=== PATIENT | female | born 1960 | race Caucasian/White ===

== ENCOUNTER 2023-04-17 15:15 | Outpatient (RCR) | payer OTHER, SELFPAY | END 2023-05-22 15:00 | disposition home or self-care (01) | PROVIDERS: PCP Family Medicine; Visit Provider Family Medicine | DX: S03.40XA Sprain of jaw, unspecified side, initial encounter (principal); R52 Pain, unspecified; M62.40 Contracture of muscle, unspecified site; Z51.89 Encounter for other specified aftercare | CPT/HCPCS: 97032; 97110; 97140; 97161 ==

== ENCOUNTER 2023-07-09 11:15 | Outpatient (RCR) | payer OTHER, SELFPAY | END 2023-10-10 11:28 | disposition home or self-care (01) | PROVIDERS: PCP Family Medicine; Visit Provider Student in an Organized Health Care Education/Training Program | DX: M26.621 Arthralgia of right temporomandibular joint (principal); H93.8X9 Other specified disorders of ear, unspecified ear; Z51.89 Encounter for other specified aftercare | CPT/HCPCS: 97032; 97140; 97164 ==

== ENCOUNTER 2025-01-15 17:01 | Emergency (ER) | payer BC, SELFPAY ==
[2025-01-15] VITALS (26 sets, daily range): BP systolic 127–186; BP diastolic 86–118; PULSE 60–71; RESP 6–26; TEMP 36.8; O2SAT 94–99; BMI 24.7
--- OUTSIDE RECORDS SUMMARY | 2025-01-15 17:04 | XMS_ITS | Clinical Summary ---
Author Organization [facility] Address [address] [place] [id number] Care Team Providers Care Rubber Stamp Assembler Name Role Phone Linh Moses MD Primary Care Provide r Allergies Active Allergy Reactions Criticality Noted Date Comments Bee Venom Protein (Honey Bee) Hives,Edema 10/13/2016 Typhoid Vaccin,Live,Attenuated Diarrhea 12/04/2018 Oral typhoid vaccine--GI upset Medications naproxen (ALEVE) 220 mg tablet Takes rarely as needed for migraine 0 12/16/19 17 Active hydrocortisone 2.5% creamIndications:H emorrhoids, external APPLY TOPICALLY TO AFFECTED AREA(S) 2 TIMES DAILY 28 g 2 11/12/19 20 Active EPINEPHrine (EpiPen 2-Valente) 0.3 mg/0.3 mL auto-injectorIndic ations:Systemic reaction to bee sting Inject 0.3 mg (1 Pen) intramuscular one time if needed for Allergic Reaction. 1 Each 11/13/19 24 Active rizatriptan 5 mg disintegrating tabletIndications: Migraine without aura and without status migrainosus, not intractable Place 1-2 tablets on the tongue every 2 hours if needed for Migraine. Max dose: 30mg per 24 hrs. 10 Tablet 4 06/04/19 25 Active pramipexole 0.5 mg tabletIndications: Restless legs syndrome Take 0.5mg by mouth 2-3 hours before bedtime 90 Tablet 3 06/04/19 25 Active omeprazole (PRILOSEC) 20 mg Delayed-Release capsuleIndications :Chronic cough Take 1 Capsule (20 mg) by mouth once daily before a meal. Take 30 minutes prior to a meal 30 Capsule 2 11/14/19 25 Active Active Problems Problem Noted Date Diagnosed Date Sensorineural hearing loss, bilateral 02/15/2018 Microscopic colitis 12/03/2015 Migraine without aura and wi thout status migrainosus, not intractable 05/29/2015 Patellofemoral stress syndrome of right knee Vitamin D deficiency 09/14/2014 Routine adult health maintenance 04/01/2013 Overview (04/01/2013): Colonoscopy 03/2013 normal repeat in 10 years Fibroids 10/04/2010 Dysthymic disorder 10/04/2010 Encounters Date Type Department Care Team Description 11/13/2024 4:30 PM CDT Ancillary Procedure [place] [address] [place] [address] 11/13/2024 2:40 PM CDT Office Visit [facility] [address] [place] [address] Linh Moses MD Cough (Unsure if it is viral or possible acid reflux, occasionally will throw up when coughing typically after drinking red wine at dinner or spicy food occasional sore throat. Does seem better if she controls the food she is eating./Started taking omeprazole 20 mg delayed release this week.); Lab (Discuss A1c, 6.0. indicating prediabetes ) 11/13/[address] [place] [address] Linh Moses MD Refill Request (Omeprazole) 11/13/2024 Travel 11/12/2024 Nurse Triage [facility] [address] [place] [address] Linh Moses MD Cough 11/12/2024 Telephone [facility] [address] [place] [address] Linh Moses MD Appointment Request (appointment) 11/11/2024 7:20 AM CDT Ancillary Procedure [facility] [address] [place] [address] 11/10/2024 3:00 PM CDT Orders Only [facility] [address] [place] [address] Lab, [place] [facility] 11/10/2024 Travel from Last 3 Months Immunizations Immunization Administration Dates Next Due COVID-19 VACCINE SPIKEVAX (M ODERNA 50MCG/0.5ML) 12YO+ PFS 02/08/2023 COVID-19 vaccine (Moderna 100mcg/0.5mL) PF, MDV 01/15/2021 COVID-19 vaccine (Pfizer-Bio NTech 30mcg/0.3mL) 12YO+ MEENU-SUCROSE PF, MDV 06/18/2021 COVID-19 vaccine (Pfizer-Bio NTech 30mcg/0.3mL) PF, MDV 06/10/2020,05/20/2020 HepA-HepB (Twinrix) 10/18/2018 Influenza Virus, Unspecified 12/26/2023 Influenza, IIV4 02/08/2023,,11/25/2020,2017,11/21/2016,11/18/2015 Influenza, IIV4 (=>6mos) MDV 11/17/2019,12/04/19,12/04/2017 Influenza, Injectable, Mdck, Quadrivalent, W/preservative 12/27/2021,11/25/2020 Influenza,CCIIV4 PRESERV FREE 11/25/2020 Tdap 09/20/2012 Typhoid (oral) 10/18/2018 Zoster (Shingrix-RZV, recombinant) 03/30/2020, Family History Medical History Relation Name Comments Stroke Father Bear Hernandesdonny Heart Disease Maternal Grandfather Stroke Paternal Grandfather Hypertension Sister 2 Neha Vilchis Parkinsonism Sister 2 Neha Vilchis Cancer-breast No Family History Relation Name Status Comments Brother Bear Hernandesdonny Alive Daughter Génesis Kang Alive Father Bear Josephjuarez Alive Maternal Grandfather Maternal Grandmother Mother Xi Mame Alive Paternal Grandfather Paternal Grandmother Sister 1 Tayla Watt Alive Sister 2 Neha Vilchis Alive Son James Kang Alive Social History Tobacco Use Types Packs/Day Years Used Date Smoking Tobacco: Former Cigarettes 1 2 0 03/05/1980 - 03/05/1982 Smokeless Tobacco: Never Tobacco Cessation:Counseling Given: Not Answered Alcohol Use Standard Drinks/Week Comments Yes 10 (1 standard drink = 0.6 oz pu re alcohol) PHQ-2 Answer Date Recorded PHQ-2 TOTAL SCORE 1 06/03/2024 Social Connections Answer Date Recorded Do you often feel lonely or isolated from those around you? 0 06/03/2024 Alcohol Use Answer Date Recorded How often do you have a drink containing alcohol ? 4 11/13/2024 How many drinks containing a lcohol do you have on a typical day when you are drinking? 0 11/13/2024 How often do you have five or more drinks on one occasion? 0 11/13/2024 Financial Resource Strain Answer Date R ecorded Difficulty of Paying Living Expenses 3 06/03/2024 Difficulty of Paying Living Expenses Not on file 06/03/2024 Food Insecurity Answer Date Recorded Do you worry your food will run out before you are able to buy more? 1 06/03/2024 Transportation Needs Answer Date Record ed Does lack of transportation keep you from medica l appointments? 1 06/03/2024 Does lack of transportation keep you from work, meetings or getting things that you need? 1 06/03/2024 Housing Stability Answer Date Recorded What is your housing situation today? 1 06/03/2024 Utilities Answer Date Recorded Do you have trouble paying f or utilities (for example, heat, electricity, water, phone)? 1 06/03/2024 Comments No Sex and Gender Information Value Date Recorded Sex Assigned at Not on file Legal Sex Female 5:23 AM MERCHANDISING ASSISTANT Gender Identity Not on file Sexual Orientation Not on file Occupation Industry Job Start Date Job End Date Not on file Not on file Not on file Not on file Obstetrics History Para Term AB IAB SAB Ectopic Multiple Livin g Live Births 3 2 2 1 1 2 Date Outcome GA Total Labor Labor/2nd/3rd Weight Sex Type Anes PTL Reina A1 A5 Name Clin Term Term SAB Last Filed Vital Signs Vital Sign Reading Time Taken Comments Blood Pressure 136/89 11/13/2024 3:21 PM CDT Pulse 63 11/13/2024 3:21 PM CDT Temperature 36.5 C (97.7 F) 04/25/2023 8:01 AM MERCHANDISING ASSISTANT Respiratory Rate - - Oxygen Saturation 98% 11/13/2024 3:21 PM CDT Inhaled Oxygen Concentration - - Weight 78.8 kg (173 lb 11.2 oz) 11/13/2024 3:21 PM CDT Height 172.1 cm (5' 7.75) 06/03/2024 1 1:01 AM CDT Body Mass Index 26.61 06/03/2024 11:01 AM CDT Plan of Treatment Upcoming Encounters Date Type Department Care Team (Late st Contact Info) Description 02/13/2025 7:00 AM MERCHANDISING ASSISTANT Orders Only [facility] [address] [place] [address] Lab, [place] 02/16/2025 4:30 PM MERCHANDISING ASSISTANT Office Visit [address] [phone] [place] [address] 02/23/2025 4:30 PM MERCHANDISING ASSISTANT Office Visit [address] [phone] [place] [address] 03/02/2025 4:30 PM MERCHANDISING ASSISTANT Office Visit [address] [phone] [place] [phone] Health Maintenance Due Date Last Done Comments Pneumococcal series for age 50+ (1 of 1 - PCV) 2012 Hepatitis B series for 19+ ( 2 of 3 - Hep B Twinrix 3-dose series) 11/15/2018 10/18/2018 Tetanus booster 09/20/2022 09/20/2012 Influenza Vaccine (#1) 2024 , 02/08/2023, 12/27/2021, Additional history exists BMI (ht and wt on same day) for age 18+ 06/03/2025 06/03/2024, 02/08/2023, 02/02/2022, Additional history exists Depression screening for age 12+ 06/03/2025 06/03/2024, 02/08/2023, 02/02/2022, Additional history exists Colonoscopy through age 75 06/28/202506/28, 04/01/2013, 04/01/2013 Mammogram for age 45-75 11/11/2025 11/12/19, 07/26/2023, 05/22/2022, Additional history exists Lipids for age 45-75 08/13/2029 08/13/2024, 03/31/2021, 03/30/2020, Additional history exists RSV vaccine for adults or (1 - 1-dose 75+ series) 2037 HIV for age 15-65 Completed 10/01/2012 Hepatitis C screening for ag e 18-79 Completed 03/30/2020 Zoster (shingles) series for age 50+ Completed 03/30/2020, 10/18/2018 Procedures Procedure Name Priority Date/Time Associated Diagnosis Comments XR CHEST 2 VIEWS PA AND LATERAL Routine 11/13/2024 4:31 PM CDT Cough, unspecified type XR MAMMO RENE BILAT SCREEN Routine 11/11/2024 7:42 AM CDT Visit for screening mammogram HEMOGLOBIN A1C Routine 11/10/2024 3:08 PM CDT Elevated glucose LIPID PANEL W REFLEX MEASURED LDL Routine 08/13/2024 7:03 AM CDT Lipid screening ANTI HCV Routine 03/30/2020 9:16 AM MERCHANDISING ASSISTANT Encounter for hepatitis C screening test for low risk patient SCAN-COLONOSCOPY 06/29/2015 10:0 0 AM CDT ANTI HIV 1/2 Routine 10/01/2012 5:35 PM CDT Vaginitis from Last 3 Months or Most Recently Relevant to Health Maintenance Results * XR CHEST 2 VIEWS PA AND LATERAL (11/13/2024 4:31 PM CDT) Anatomical Region Laterality Modality CHEST, THORAX, Lung, HEART Compu prisca Radiography 11/15/2024 5:33 AM CDT Impressions 11/15/2024 5:33 AM CDT Negative chest Dictated by Estevan Hope MD @ 11/15/2024 5:33:49 AM (Electronically Signed) Narrative 11/15/2024 5:33 AM CDT For Patients: As a result of the Cures Act, medical imaging exams and procedure reports are released immediately into your electronic medical record. You may view this report before your referring provider. If you have questions, please contact your health care provider. INDICATION: Cough TECHNIQUE: PA and lateral COMPARISON: None FINDINGS: Lungs and pleural spaces clear. Heart size and pulmonary vasculature within normal limits. No significant osseous abnormality. Procedure Note Estevan Hope MD - 11/15/2024 For Patients: As a result of the Cures Act, medical imagingexams and procedure reports are released immediately into your electronicmedical record. You may view this report before your referring provider.If you have questions, please contact your health care provider. INDICATION: Cough TECHNIQUE: PA and lateral COMPARISON: None FINDINGS: Lungs and pleural spaces clear. Heart size and pulmonary vasculaturewithin normal limits. No significant osseous abnormality. IMPRESSION: Negative chest Dictated by Estevan Hope MD @ 11/15/2024 5:33:49 AM (Electronically Signed) us Linh Moses MD GENERAL IMAGING Final Result * XR MAMMO RENE BILAT SCREEN (11/11/2024 7:42 AM CDT) Anatomical Region Laterality Modality BREASTS, Breast Left, Breast Right Bilateral Mammography Impressions 11/11/2024 3:49 PM CDT There is no radiographic evidence for malignancy. Recommend annual mammograms. MAMMOGRAM ASSESSMENT: ACR 1 Negative PATIENTS: You will also receive a letter with your examination results in an easy to read format. If you have questions about your results, please contact your referring provider. Narrative 11/11/2024 3:49 PM CDT For Patients: As a result of the Cures Act, medical imaging exams and procedure reports are released immediately into your electronic medical record. You may view this report before your referring provider. If you have questions, please contact your health care provider. XR MAMMO RENE BILAT SCREEN [[id number]] CLINICAL HISTORY: This is an asymptomatic 64 y.o. patient. INDICATION FOR EXAM: Mammogram Screening. TECHNIQUE: CC and MLO views were obtained. This study was evaluated with the assistance of Computer-Aided Detection. Breast Tomosynthesis was used in interpretation. COMPARISON FILM: Yes 07/26/23 [facility] 05/22/22 [facility] FINDINGS: The breasts are heterogeneously dense, which may obscure small masses. There are no dominant masses, suspicious micro calcifications or areas of architectural distortion. Linh Moses MD MAMMO Final Result * (ABNORMAL) HEMOGLOBIN A1C (11/10/2024 3:08 PM CDT) HEMOGLOBIN A1C 6.0(H) <5.7 % 11/11/2024 4:26 AM CDT [facility] Comment: For someone without known diabetes, a hemoglobin A1c value between 5.7% and 6.4% is consistent with prediabetes and should be confirmed with a follow-up test. For someone with known diabetes, a value <7% indicates that their diabetes is well controlled. A1c targets should be individualized based on duration of diabetes, age, comorbid conditions, and other considerations. This assay result is consistent with an increased risk of diabetes. Currently, no consensus exists regarding use of hemoglobin A1c for diagnosis of diabetes for children. Blood BLOOD SPECIMEN / Unknown [facility] / Unknown 11/10/2024 3:08 PM CDT 11/10/2024 3:08 PM CDT Linh Moses MD CHEMISTRY Final Result [facility] [address] [place] [address], [place] [phone] * (ABNORMAL) LIPID PANEL W REFLEX MEASURED LDL (08/13/2024 7:03 AM CDT) [facility] Signature CHOLESTEROL, TOTAL 206(H) <200 mg/dL [facility] HDL CHOLESTEROL 93 > OR = 50 mg/dL [facility] TRIGLYCERIDES 80 <150 mg/dL [facility] LDL-CHOLESTEROL 96 mg/dL (calc) [facility] Comment: Reference range: <100 Desirable range <100 mg/dL for primary prevention; <70 mg/dL for patients with CHD or diabetic patients with > or = 2 CHD risk factors. LDL-C is now calculated using the Patricia calculation, which is a validated novel method providing better accuracy than the Friedewald equation in the estimation of LDL-C. Remigio SS et al. JAMI. 2013;310(19): 2367-3427 (http://education.Ippies/faq/RCH942) CHOL/HDLC RATIO 2.2 <5.0 (calc) [facility] NON HDL CHOLESTEROL 113 <130 mg/dL (calc) [facility] Comment: For patients with diabetes plus 1 major ASCVD risk factor, treating to a non-HDL-C goal of <100 mg/dL (LDL-C of <70 mg/dL) is considered a therapeutic option. Blood BLOOD SPECIMEN / Unknown 08/13/2024 7:03 AM CDT 08/13/2024 7:04 AM CDT us Linh Moses MD CHEMISTRY Final Result [facility] [address] [place] [address], [place] [phone] [facility] [address] [place] [address] * ANTI HCV (03/30/2020 9:16 AM MERCHANDISING ASSISTANT) HEPATITIS C ANTIBODY Non-React cortes Non-React cortes 03/30/2020 6:26 PM MERCHANDISING ASSISTANT [facility] Comment:Antibodies to HCV no t detected; does not exclude the possibility of exposure to HCV. Blood BLOOD SPECIMEN / Unknown Venipuncture / Unknown 03/30/2020 9:16 AM MERCHANDISING ASSISTANT 03/30/2020 9:16 AM MERCHANDISING ASSISTANT us Linh Moses MD SEND OUTS Final Result [facility] [address] [place] [address], [place] * SCAN-COLONOSCOPY (06/29/2015 10:00 AM CDT) Narrative Transcriptions Kevan Ruggiero MD - 06/29/2015 9:09 AM CDT [facility] [address], [address], [place] [address] Patient Name: Kenia Vilchis Gender: Female Exam Date: 06/29/2015 Visit Number: [id number] Age: 55 Years Date of : 1960 Attending MD: Kevan Ruggiero MD Medical Record#: [id number] ----- Procedure: Colonoscopy Indications: Diarrhea Referring MD: Referral Self Primary MD: Linh Moses MD Medications: Admitting Medication: 0.9% Normal Saline at TKO Intra Procedure Medications: Received MAC sedation per anesthesia provider Complications: Procedure: An examination of the heart and lungs was performed and found to be withinacceptable limits. The patient was therefore deemed a reasonablecandidate for endoscopy and 1 sedation. The risks and benefits of the procedure were explained to the patient.After obtaining informed consent, MAC sedation was administered peranesthesia provider and I passed the scope without difficulty via the rectum to the ileum. The appendiceal orificeand ic valve were identified. The scope was retroflexed during theexamination The quality of the prep was excellent (Miralax/Gatorade/2tablets Bisacodyl/Magnesium Citrate). This was a complete examination throughout the entire colon. Findings: Normal finding. Location - ileum. Hemorrhoids. Internal hemorrhoids without bleeding. Random biopsies were taken throughout the colon to rule out microscopiccolitis. The entire colon was normal. Impression: Diarrhea impression comments: Unremarkable exam. Will look for microscopiccolitis. Pathology Results: A: COLON, RANDOM, BIOPSY: Lymphocytic colitis MICROSCOPIC A: Performed Electronically signed by: Rajani Lucio MD This can usually be treated by high dose pepto-bismol for 2 months, 3pills, three times per day. I will send in a prescription. Then followup in clinic. Final Plan: Repeat colonoscopy in 10 years for screening. If you have signs orsymptoms of lower GI illness or a new diagnosis of colon cancer in animmediate family member, you should contact [facility] or your primary providerto discuss whether your next exam should be repeated sooner. We will attempt to contact you at appropriate intervals via U.S. mail. Wemay not be able to find you or contact you at that time, therefore youshould know that the responsibility for following our recommendation restswith you. If you don't hear from us at the time your procedure is due,please contact our office to schedule an appointment. If your contactinformation should change, please contact our office so that we can updateyour record. Plan Comments: Recommendation Comments: Follow up biopsies, then return to clinic. Additional Comments: This can usually be treated by high dose pepto-bismol for 2 months, 3pills, three times per day. I will send in a prescription. Then followup in clinic. _Electronically signed by: Kevan Ruggiero MD 06/29/2015 cc: Referral Self Linh Moses MD us Kevan Ruggiero MD OTHER Final Resu lt * ANTI HIV 1/2 (10/01/2012 5:35 PM CDT) ANTI HIV 1/2 Non-reacti ve [facility] Blood specimen (specimen) BLOOD SPECIMEN / Unknown 10/01/2012 5:35 PM CDT 10/01/2012 5:31 PM CDT us Linh Moses MD SEND OUTS Final Result [facility] [place]NAL ZIP [id number] [place] [address] from Last 3 Months or Most Recently Relevant to Health Maintenance [facility] Care Teams Rubber Stamp Assembler Relationship Specialty Start Date End Date Linh Moses MD [address] [place] [address] PCP - General Family Practice 09/09/10
--- NOTE | 2025-01-15 17:11 | CRLHL7_ITS ---
For Patients: As a result of the Century Cures Act, medical imaging exams and procedure reports are released immediately into your electronic medical record. You may view this report before your referring provider. If you have questions, please contact your health care provider. INDICATION: Chest pain. TECHNIQUE: Chest 2 views. COMPARISON: None. FINDINGS: Lungs: Normal lung volume. No consolidation. Subtle retrocardiac opacity abutting the paravertebral space on the right with incomplete border sign measuring approximally 36 millimeters. No imaging correlate is seen on the lateral exam. Recommend further assessment with dedicated chest CT.. Pleura: No pleural effusion or pneumothorax. Heart and Mediastinum: Normal heart size. The great vessels of the thorax are unremarkable. Bones: No acute displaced osseous process. IMPRESSION: No consolidation. Subtle retrocardiac opacity abutting the paravertebral space on the right with incomplete border sign measuring approximally 36 millimeters. No imaging correlate is seen on the lateral exam. Recommend further assessment with dedicated chest CT. Dictated by Hitesh Coronado MD @ 01/15/2025 6:13:36 PM (Electronically Signed)
[2025-01-15 17:31] LABS: Troponin, Point-of-Care* 0.00 ng/ml (0.01-0.04)
[2025-01-15 17:33] LABS: Chloride* 103 mmol/L (96-114); Potassium* 3.8 mmol/L (3.6-5.1); Sodium* 137 mmol/L (135-149)
[2025-01-15 17:36] LABS: Anion Gap 6 mEq/L (7-15); Blood Urea Nitrogen* 18 mg/dL (7-30); Carbon Dioxide* 28 mmol/L (20-32); Creatinine* 0.9 mg/dL (0.5-1.5); Est. Creatinine Clearance* 56.72; Estimated Glomerular Filt Rate 72 ml/min
[2025-01-15 17:37] LABS: Calcium* 9.8 mg/dL (8.4-10.6); Glucose* 114 mg/dL (60-115)
[2025-01-15 17:48] LABS: D Dimer Quantitative* 0.25 ug/ml (0.00-0.50)
--- NOTE | 2025-01-15 17:51 | ED.CHESTPAIN ---
HPI - Chest Pain General Date Seen: 01/15/25 Chief Complaint: Chest Pain Stated Complaint: Possible heart attack--dizziness, chest pain Time Seen by Provider: 01/15/25 17:11 Source: patient Mode of arrival: ambulatory Limitations: no limitations History of Present Illness HPI narrative: Patient is a 64-year-old female presenting to the emergency department for lightheadedness. States she had issues with lightheadedness before but this episode seemed more persistent so she decided to come to the emergency department for evaluation. Denies any associated dizziness. She states she never felt like she was going to pass out but have 2 episodes today where she felt like the lightheadedness was severe. She has done you feel anxious about the symptoms and while she is on the way to the emergency department she has developed left-sided chest pressure. She states it feels like a pressure sensation. Denies any tenderness. Pain does not radiate. Has never had chest pain like this before. Does have high blood pressure but is not currently on medication as she is trying to manage it with lifestyle changes. Denies fevers, chills, lightheadedness, dizziness. Does states she feels very mildly short of breath but again is unsure if that is related to anxiety. No history of heart disease that she is aware of. No family history of heart disease. Denies headache, weakness, numbness, abdominal pain, fevers, chills. No other concerns noted at this time. Review of Systems Status of ROS Reports: 10 or more systems reviewed and unremarkable except as noted in History and below [facility] Social History Non-prescribed substance use: denies use Exam Narrative Exam Narrative: Const: Well-nourished, Well-developed, in mild distress Eyes: PERRL, no conjunctival injection, and symmetrical lids HENT: Atraumatic external nose and ears. Moist mucous membranes. Neck: Symmetric, trachea midline, No thyromegaly. CVS: RRR, No murmurs or gallops. Peripheral pulses 2+ and equal in all extremities RESP: Unlabored respiratory effort. Clear to auscultation bilaterally. GI: Nontender/Nondistended, No rebound or guarding. MSK:Extremities w/o deformity, Normal Active ROM Skin: Warm, Dry. No rashes or lesions. Neuro: Normal Muscle tone, No focal neurological deficits. Psych: Awake, Alert, & Oriented x3. Appropriate mood and affect. Const Vital Signs, click to edit/add: Vital Signs - 24 hr 01/15/25 17:05 01/15/25 17:15 01/15/25 17:16 Temperature 98.2 F Pulse Rate Pulse Rate [Right Radial] 62 Respiratory Rate 16 Blood Pressure 147/99 H 141/104 H Blood Pressure [Left Upper Arm] 186/118 H Pulse Oximetry 94 Oxygen Delivery Method Room Air 01/15/25 17:20 01/15/25 17:28 01/15/25 17:29 Temperature Pulse Rate 62 65 Pulse Rate [Right Radial] 64 Respiratory Rate 16 9 L Blood Pressure 139/94 H Blood Pressure [Left Upper Arm] 147/99 H Pulse Oximetry 96 94 95 Oxygen Delivery Method Room Air 01/15/25 17:30 01/15/25 17:30 01/15/25 17:32 Temperature Pulse Rate 66 66 Pulse Rate [Right Radial] 62 Respiratory Rate 16 8 L 20 Blood Pressure 133/88 Blood Pressure [Left Upper Arm] 141/104 H Pulse Oximetry 95 95 95 Oxygen Delivery Method Room Air Room Air 01/15/25 17:45 01/15/25 17:47 01/15/25 17:48 Temperature Pulse Rate 60 62 62 Pulse Rate [Right Radial] Respiratory Rate 8 L 11 L 14 Blood Pressure 134/86 Blood Pressure [Left Upper Arm] Pulse Oximetry 96 95 96 Oxygen Delivery Method 01/15/25 18:00 01/15/25 18:02 01/15/25 18:15 Temperature Pulse Rate 62 67 61 Pulse Rate [Right Radial] Respiratory Rate 11 L 11 L 7 L Blood Pressure 149/93 H Blood Pressure [Left Upper Arm] Pulse Oximetry 97 96 99 Oxygen Delivery Method 01/15/25 18:17 01/15/25 19:01 01/15/25 19:03 Temperature Pulse Rate 60 64 Pulse Rate [Right Radial] Respiratory Rate 6 L 26 H 18 Blood Pressure 146/89 H 137/105 H Blood Pressure [Left Upper Arm] Pulse Oximetry 98 99 Oxygen Delivery Method Room Air Course Vital Signs Vital signs: Initial Vital Signs Temperature 98.2 F 01/15/25 17:05 Temperature Source Temporal Artery Scan 01/15/25 17:05 Pulse Rate 62 01/15/25 17:05 Pulse Rhythm Regular 01/15/25 17:05 Respiratory Rate 16 01/15/25 17:05 Blood Pressure 186/118 H 01/15/25 17:05 Blood Pressure Mean 140 H 01/15/25 17:05 Pulse Oximetry 94 01/15/25 17:05 Oxygen Delivery Method Room Air 01/15/25 17:05 Vital Signs Temperature 98.2 F 01/15/25 17:05 Pulse Rate 62 01/15/25 17:05 Respiratory Rate 16 01/15/25 17:05 Blood Pressure 186/118 H 01/15/25 17:05 Pulse Oximetry 94 01/15/25 17:05 Oxygen Delivery Method Room Air 01/15/25 17:05 Temperature 98.2 F 01/15/25 17:05 Pulse Rate 64 01/15/25 19:03 Respiratory Rate 18 01/15/25 19:03 Blood Pressure 137/105 H 01/15/25 19:03 Pulse Oximetry 99 01/15/25 19:03 Oxygen Delivery Method Room Air 01/15/25 19:03 MDM - Chest Pain MDM Narrative Medical decision making narrative: Patient is 64-year-old female presenting to the emergency department for lightheadedness and chest pain. The head lightheadedness occurred twice today and she is feeling better but still having some mild left-sided chest pressure and some mild shortness of breath. The differential diagnosis of chest pain is broad and includes common etiologies such as musculoskeletal strain, GERD, pneumonia, etc. More serious etiologies considered include PE, coronary artery disease, pneumothorax, aortic dissection, aortic aneurysm. Will do EKG and troponin to look for signs of cardiac abnormalities. Chest x-ray ordered to look for signs pneumonia pneumothorax. Will do D-dimer look for signs of a blood clot. Also order viral swabs, CBC, BMP, magnesium. I have low concern for aortic dissection or aortic aneurysm at this time. Symptoms could all be related to her current anxiety. EKG interpreted independently by myself shows no acute concerning abnormalities. Chest x-ray interpreted independently by myself and the radiologist shows an opacification on the right seen on AP view that is not seen on the lateral view. Recommended to do a CT scan. Patient's lab work shows no acute concerning abnormalities. Will repeat troponin. Viral swabs are negative. Patient's CT scan interpreted by myself and the radiologist shows no acute concerning abnormalities. Repeat troponin within normal limits. Rest of lab work shows no concerning abnormalities. At this time she is doing well I believe she is safe for discharge. I did inform her follow-up the primary care provider about the incidental finding seen the CT scan. She is agreeable to this plan. Lab Data Labs: Lab Results 01/15/25 01/15/25 01/15/25 Range/Units 17:11 17:15 17:40 WBC 8.86 (4.50-11.00) K/uL RBC 4.65 (4.00-5.20) m/uL Hgb 13.6 (12.0-16.0) gm/dL Hct 41.4 (33.0-51.0) % MCV 89 (80-100) fL MCH 29 (26-34) pg MCHC 33 (32-36) gm/dL RDW Coeff of Davi 12.5 (11.5-15.5) % Plt Count 390 (140-440) K/uL Neut % (Auto) 57.2 (42.0-72.0) % Lymph % (Auto) 32.5 (20-44) % [place] % (Auto) 8.1 (0.0-11.0) % Eos % (Auto) 1.7 (0.0-7.0) % Baso % (Auto) 0.3 (0.0-3.0) % Neut # (Auto) 5.06 (1.7-7.0) K/uL Lymph # (Auto) 2.88 (0.90-2.90) K/uL [place] # (Auto) 0.70 (0.00-0.90) K/UL Eos # (Auto) 0.15 (0.00-0.50) K/uL Baso # (Auto) 0.03 (0.00-0.30) K/uL Abs Immat Gran (auto) 0.02 (0.00-0.30) K/uL Imm/Tot Granulo (auto) 0.2 % D-Dimer Quant (PE/DVT) 0.25 (0.00-0.50) ug/ml Sodium 137 (135-149) mmol/L Potassium 3.8 (3.6-5.1) mmol/L Chloride 103 (96-114) mmol/L Carbon Dioxide 28 (20-32) mmol/L Anion Gap 6 L (7-15) mEq/L BUN 18 (7-30) mg/dL Creatinine 0.9 (0.5-1.5) mg/dL Estimated Creat Clear 56.72 Estimated GFR 72 ml/min Glucose 114 (60-115) mg/dL Calcium 9.8 (8.4-10.6) mg/dL Magnesium 1.9 (1.5-2.6) mg/dL Troponin I < 0.01 (0.01-0.04) ng/mL SARS-CoV-2 (PCR) Negative SARS-CoV-2 (Negative) Influenza Type A (PCR) Negative PCR FLU A (Negative) Influenza Type B (PCR) Negative PCR FLU B (Negative) RSV (PCR) Negative PCR RSV (Negative) Lab Acknowledgement POC Troponin I 0.00 L (0.01-0.04) ng/ml 01/15/25 Range/Units 18:27 WBC (4.50-11.00) K/uL RBC (4.00-5.20) m/uL Hgb (12.0-16.0) gm/dL Hct (33.0-51.0) % MCV (80-100) fL MCH (26-34) pg MCHC (32-36) gm/dL RDW Coeff of Davi (11.5-15.5) % Plt Count (140-440) K/uL Neut % (Auto) (42.0-72.0) % Lymph % (Auto) (20-44) % [place] % (Auto) (0.0-11.0) % Eos % (Auto) (0.0-7.0) % Baso % (Auto) (0.0-3.0) % Neut # (Auto) (1.7-7.0) K/uL Lymph # (Auto) (0.90-2.90) K/uL [place] # (Auto) (0.00-0.90) K/UL Eos # (Auto) (0.00-0.50) K/uL Baso # (Auto) (0.00-0.30) K/uL Abs Immat Gran (auto) (0.00-0.30) K/uL Imm/Tot Granulo (auto) % D-Dimer Quant (PE/DVT) (0.00-0.50) ug/ml Sodium (135-149) mmol/L Potassium (3.6-5.1) mmol/L Chloride (96-114) mmol/L Carbon Dioxide (20-32) mmol/L Anion Gap (7-15) mEq/L BUN (7-30) mg/dL Creatinine (0.5-1.5) mg/dL Estimated Creat Clear Estimated GFR ml/min Glucose (60-115) mg/dL Calcium (8.4-10.6) mg/dL Magnesium (1.5-2.6) mg/dL Troponin I (0.01-0.04) ng/mL SARS-CoV-2 (PCR) (Negative) Influenza Type A (PCR) (Negative) Influenza Type B (PCR) (Negative) RSV (PCR) (Negative) Lab Acknowledgement Test Added POC Troponin I (0.01-0.04) ng/ml Imaging Data Chest x-ray: Attestation: I have reviewed the pertinent imaging results. Radiologist's impression: No consolidation. Subtle retrocardiac opacity abutting the paravertebral space on the right with incomplete border sign measuring approximally 36 millimeters. No imaging correlate is seen on the lateral exam. Recommend further assessment with dedicated chest CT. Dictated by Hitesh Coronado MD @ 01/15/2025 6:13:[address] scan chest: Attestation: I have reviewed the pertinent imaging results. Radiologist's impression: 1. No acute or suspicious CT correlate for abnormality questioned on chest radiographs. 2. No acute intrathoracic pathology. 3. Ascending thoracic aortic aneurysm measuring 4.0 cm. 4. Borderline cardiomegaly. 5. Right-sided pulmonary nodule measuring 6 mm. Recommend comparison with any prior intrathoracic imaging, if available, to assess for stability. Otherwise consider follow-up CT chest in 6 months to assess for interval change. Please note that all CT scans at this facility use dose modulation, iterative reconstruction, and/or weight-based dosing when appropriate to reduce radiation dose to as low as reasonably achievable. Dictated by Ky Raza MD @ 01/15/2025 8:16:45 PM ECG Data Attestation: I personally reviewed and interpreted this ECG as follows: Prior ECG tracings: not available for review Interpretation: Normal sinus rhythm with rate of 74 beats per minute, normal intervals, normal axis, no ST or T-wave abnormalities. Discharge Plan Discharge Clinical Impression: Atypical chest pain Patient Disposition: Home, Self-Care Condition: Stable Instructions: Noncardiac Chest Pain (ED) Additional Instructions: He continue to have chest pain into next week follow-up the primary care provider. There is an ascending thoracic aortic aneurysm measuring 4 cm and a right-sided pulmonary nodule measuring 6 mm. These are incidental findings and follow-up with your primary care provider about them. Return to emergency department for new or worsening symptoms. Follow Up/Referrals: Linh Moses MD [Primary Care Provider, Family Practice] Stand Alone Forms: [facility] MD Info Instructions
[2025-01-15 18:32] LABS: PCR FLU A Negative PCR FLU A (Negative); PCR FLU B Negative PCR FLU B (Negative); PCR RSV Negative PCR RSV (Negative); SARS PCR* Negative SARS-CoV-2 (Negative)
[2025-01-15 18:34] LABS: Hematocrit* 41.4 % (33.0-51.0); Hemoglobin* 13.6 gm/dL (12.0-16.0); Immature Granulocytes Abs Auto 0.02 K/uL (0.00-0.30); Immature Granulocytes Pct Auto 0.2 %; Lymphocytes Absolute Auto 2.88 K/uL (0.90-2.90); Mean Corpuscular HGB Conc 33 gm/dL (32-36); Mean Corpuscular Hemoglobin 29 pg (26-34); Mean Corpuscular Volume 89 fL (80-100); RDW Coefficient of Variation % 12.5 % (11.5-15.5); Red Blood Count* 4.65 m/uL (4.00-5.20); White Blood Count* 8.86 K/uL (4.50-11.00)
[2025-01-15 18:39] LABS: Slide Review Reflex No
--- NOTE | 2025-01-15 18:48 | CRLHL7_ITS ---
For Patients: As a result of the Century Cures Act, medical imaging exams and procedure reports are released immediately into your electronic medical record. You may view this report before your referring provider. If you have questions, please contact your health care provider. INDICATION: Left-sided chest pain. Abnormal chest x-ray. TECHNIQUE: CT chest without contrast. COMPARISON: Chest x-ray 01/15/2025. FINDINGS: Lungs and pleura: Bibasilar atelectasis. Right-sided [place] fissural nodule measuring 6 mm (series 3, image 53). No focal consolidation. No pleural effusion or pneumothorax. Heart and vasculature: Borderline cardiomegaly. No pericardial effusion. Main pulmonary artery normal in caliber. Ascending thoracic aortic aneurysm measuring 4.0 cm. Mild coronary artery calcification. Lymph nodes/mediastinum: No suspicious mediastinal mass. No suspicious lymphadenopathy. Chest wall and thyroid: Scattered bilateral thyroid calcifications. No suspicious chest wall mass or fluid collection. Upper abdomen: No acute abnormality. Bones: No acute abnormality. Multilevel degenerative disease of the spine. IMPRESSION: 1. No acute or suspicious CT correlate for abnormality questioned on chest radiographs. 2. No acute intrathoracic pathology. 3. Ascending thoracic aortic aneurysm measuring 4.0 cm. 4. Borderline cardiomegaly. 5. Right-sided pulmonary nodule measuring 6 mm. Recommend comparison with any prior intrathoracic imaging, if available, to assess for stability. Otherwise consider follow-up CT chest in 6 months to assess for interval change. Please note that all CT scans at this facility use dose modulation, iterative reconstruction, and/or weight-based dosing when appropriate to reduce radiation dose to as low as reasonably achievable. Dictated by Ky Raza MD @ 01/15/2025 8:16:45 PM (Electronically Signed)
[2025-01-15 20:47] LABS: Troponin, Point-of-Care* 0.00 ng/ml (0.01-0.04)
== END 2025-01-15 20:52 | disposition home or self-care (01) ==
LOC: ED 20:35
PROVIDERS: Emergency Provider Student in an Organized Health Care Education/Training Program; PCP Family Medicine
DX: R07.89 Other chest pain (principal); R06.02 Shortness of breath
CPT/HCPCS: 36415; 71046; 71250; 80048; 83735; 84484; 85025; 85379; 87631; 93005; 99284; 99285